=== PATIENT | male | born 1965 | race Caucasian/White ===

== ENCOUNTER → 2018-12-19 | Outpatient (CLI) | payer BC ==
[~2018-12-19] MED LIST: ANUSOL1 EACH RE; ASPIRIN125 MG RC; ASPIRIN325; NEXIUM40 MG PO
== END ==
LOC: RAD 16:45
DX: R06.02 Shortness of breath (principal)

== ENCOUNTER → 2018-12-20 | Outpatient (CLI) | payer BC | LOC: CAT 12:57 | DX: R51 Headache (principal); H53.9 Unspecified visual disturbance ==

== ENCOUNTER → 2021-02-25 | Outpatient (CLI) | payer OTHER | LOC: CAT 14:10 | PROVIDERS: ATTEND Internal Medicine Cardiovascular Disease | DX: Z13.6 Encounter for screening for cardiovascular disorders (principal); I25.10 Atherosclerotic heart disease of native coronary artery without angina pectoris; E78.00 Pure hypercholesterolemia, unspecified ==

== ENCOUNTER → 2021-03-10 | Outpatient (CLI) | payer BC | LOC: SJCVCIMAG 10:37 | PROVIDERS: ATTEND Internal Medicine Cardiovascular Disease | DX: R06.00 Dyspnea, unspecified (principal); J45.909 Unspecified asthma, uncomplicated; K21.9 Gastro-esophageal reflux disease without esophagitis; Z87.891 Personal history of nicotine dependence; Z79.899 Other long term (current) drug therapy; Z72.89 Other problems related to lifestyle ==